=== PATIENT | male | born 1980 | race Caucasian/White ===

== ENCOUNTER → 2016-11-02 | Outpatient (CLI) | payer BC ==
--- NOTE | 2016-11-02 10:34 | DX ---
Right Elbow Series, 3 Views History: Lateral right elbow pain without trauma persistent for 6 months. Rule out loose body versus degenerative change.. Findings: Osseous structures are intact without fracture. There is no elbow joint effusion. Soft tiss ues are unremarkable. The elbow joint space is normal. There is no evidence of intra-articular calcif ic fragment or osteophyte formation. Impression: Normal right elbow series.
== END ==
LOC: BMCIMAGING 09:24
PROVIDERS: ATTEND Physician Assistant
DX: M25.521 Pain in right elbow (principal)

== ENCOUNTER → 2017-12-18 | Outpatient (CLI) | payer BC | LOC: BMCIMAGING 14:55 | PROVIDERS: ATTEND Podiatrist Foot & Ankle Surgery | DX: M79.672 Pain in left foot (principal); M79.671 Pain in right foot ==